=== PATIENT | female | born 1990 | race Caucasian/White ===

== ENCOUNTER 2016-06-07 17:41 | Outpatient (CLI) | payer OTHER ==
[~2016-06-07] VITALS: Ht 165.1 cm; Wt 93.4 kg
[~2016-06-07 17:41] MED LIST: ADDERALL30 MG PO; JUNEL FE 1/21 TABLET PO; MAXALT10 MG PO; ORTHO TRI-CYCL1 EACH PO; PRILOSEC40 MG PO; ULTRAM50 MG PO; ZOFRAN ODT4 MG PO
[2016-06-07 17:55] VITALS: BP 124/65
[2016-06-07 18:55] LABS: EOSINOPHIL (%) 0.4 % (0-5); EOSINOPHIL COUNT 0.1 K/uL (0-0.3); HEMATOCRIT 36.6 % (36.0-46.0); IMMATURE GRANULOCYTE (%) 0.4 % (0.0-0.7); IMMATURE GRANULOCYTE COUNT 0.1 K/uL; MCHC 33.1 G/DL (30.0-36.0); MCV 87.8 FL (83-99); MEAN PLAT.VOLUME 10.6 uM^3 (9.5-12.4); MONOCYTE COUNT 0.6 K/uL (0-0.8); NEUTROPHIL (%) 77.3 % (45-76); NEUTROPHIL COUNT 9.3 K/uL (1.8-6.4); PLATELET COUNT 297 K/uL (156-360); RBC DIS.WIDTH-CV 13.3 % (11.8-14.6); RBC DIS.WIDTH-SD 42.6 % (39-53); RED BLOOD COUNT 4.17 M/uL (3.80-5.20)
[2016-06-07 19:34] VITALS: BP 121/75
[2016-06-07 19:56] LABS: METH RESISTANT S AUREUS PCR NEGATIVE (NEGATIVE)
[2016-06-07 20:03] LABS: PROBE CHECK PASS; SPECIMEN PROCESSING CONTROL PASS
[2016-06-07 20:31] VITALS: BP 115/64
[2016-06-07 21:14] VITALS: BP 118/64
[2016-06-07 22:34] VITALS: BP 124/60
[2016-06-07 23:08] VITALS: BP 105/54
[2016-06-08] VITALS (27 sets, daily range): BP systolic 104–131; BP diastolic 55–77
== END 2016-06-08 20:45 | disposition home or self-care (01) ==
LOC: LDRP-OP 17:41 → 2WEST 17:42
PROVIDERS: Nurse Practitioner
DX: O47.03 False labor before 37 completed weeks of gestation, third trimester (principal); O99.89 Other specified diseases and conditions complicating pregnancy, childbirth and the puerperium; Z3A.36 36 weeks gestation of pregnancy
CPT/HCPCS: 85025; 87641; G0378; J2540; J7120

== ENCOUNTER 2016-06-23 10:46 | Inpatient (IN) | payer OTHER ==
[~2016-06-23] VITALS: Ht 165.1 cm; Wt 94.0 kg
[2016-06-23] VITALS (24 sets, daily range): BP systolic 89–120; BP diastolic 44–68
[2016-06-23 12:43] LABS: EOSINOPHIL (%) 0.4 % (0-5); EOSINOPHIL COUNT 0.1 K/uL (0-0.3); HEMATOCRIT 34.8 % (36.0-46.0); IMMATURE GRANULOCYTE (%) 0.5 % (0.0-0.7); IMMATURE GRANULOCYTE COUNT 0.1 K/uL; MCH 29.1 PG (29.0-34.0); MCHC 33.3 G/DL (30.0-36.0); MCV 87.2 FL (83-99); MEAN PLAT.VOLUME 10.8 uM^3 (9.5-12.4); MONOCYTE COUNT 0.5 K/uL (0-0.8); NEUTROPHIL (%) 79.7 % (45-76); NEUTROPHIL COUNT 10.5 K/uL (1.8-6.4); PLATELET COUNT 307 K/uL (156-360); RBC DIS.WIDTH-CV 13.5 % (11.8-14.6); RBC DIS.WIDTH-SD 42.8 % (39-53); RED BLOOD COUNT 3.99 M/uL (3.80-5.20); WHITE BLOOD COUNT 13.2 K/uL (4.1-10.2)
[2016-06-24] VITALS (13 sets, daily range): BP systolic 93–129; BP diastolic 48–79
[2016-06-24] MEDS ORDERED: MOTRIN800 MG PO (04:57)
[2016-06-25 06:23] VITALS: BP 116/65
[2016-06-25 07:40] VITALS: BP 108/65
[2016-06-25 07:50] VITALS: BP 119/72
== END 2016-06-25 13:45 | disposition home or self-care (01) | DRG 775 ==
LOC: LDRP-OP 10:46 → 2WEST 10:47 → LDRP-OP 07-29 21:22
PROVIDERS: Nurse Practitioner
PROC: 3E033VJ Introduction of Other Hormone into Peripheral Vein, Percutaneous Approach (ICD-10-PCS; principal; 2016-06-23)
PROC: 3E0P7GC Introduction of Other Therapeutic Substance into Female Reproductive, Via Natural or Artificial Opening (ICD-10-PCS; principal; 2016-06-23)
PROC: 00HU33Z Insertion of Infusion Device into Spinal Canal, Percutaneous Approach (ICD-10-PCS; principal; 2016-06-23)
PROC: 3E0S3CZ (ICD-10-PCS; principal; 2016-06-23)
PROC: 0HQ9XZZ Repair Perineum Skin, External Approach (ICD-10-PCS; 2016-06-24)
PROC: 10E0XZZ Delivery of Products of Conception, External Approach (ICD-10-PCS; 2016-06-24)
DX: O70.0 First degree perineal laceration during delivery (principal); O42.92 Full-term premature rupture of membranes, unspecified as to length of time between rupture and onset of labor; Z3A.39 39 weeks gestation of pregnancy; Z37.0 Single live birth; O69.82X0 Labor and delivery complicated by other cord entanglement, without compression, not applicable or unspecified; O99.344 Other mental disorders complicating childbirth; F41.9 Anxiety disorder, unspecified
CPT/HCPCS: 85025; C1755; G0378; J3010; J7120